=== PATIENT | female | born 1940 | race Hispanic/Latino ===

== ENCOUNTER 2017-09-18 19:22 | Emergency (ER) | payer OTHER ==
[~2017-09-18 19:22] MED LIST: HYDR-2132 PO; LOSA50TA37 PO
== END 2017-09-18 20:26 | disposition home or self-care (01) ==
LOC: EDH 19:22
DX: R09.89 Other specified symptoms and signs involving the circulatory and respiratory systems (principal); F41.9 Anxiety disorder, unspecified; I10 Essential (primary) hypertension
CPT/HCPCS: 70360; 71046; 74018

== ENCOUNTER 2018-10-27 09:31 | Inpatient (IN) | payer OTHER | END 2018-10-31 17:30 | disposition home or self-care (01) | LOC: EDH 09:31 → EDHIP 10:01 → 4BH 11:05 | DX: M33.20 Polymyositis, organ involvement unspecified (principal); I10 Essential (primary) hypertension; E78.5 Hyperlipidemia, unspecified; Z83.3 Family history of diabetes mellitus ==

== ENCOUNTER 2018-12-02 17:06 | Inpatient (IN) | payer OTHER | END 2018-12-06 19:45 | disposition short-term general hospital (02) | LOC: EDH 17:06 → 3DH 12-03 01:11 → EDHIP 17:07 | DX: M33.20 Polymyositis, organ involvement unspecified (principal); K56.7 Ileus, unspecified; G72.49 Other inflammatory and immune myopathies, not elsewhere classified; K57.90 Diverticulosis of intestine, part unspecified, without perforation or abscess without bleeding; M62.81 Muscle weakness (generalized); K59.00 Constipation, unspecified; D64.9 Anemia, unspecified; M60.9 Myositis, unspecified; K27.9 Peptic ulcer, site unspecified, unspecified as acute or chronic, without hemorrhage or perforation ==

== ENCOUNTER 2024-07-08 03:19 | Observation (INO) | payer OTHER ==
[~2024-07-08] VITALS: Ht 149.9 cm; Wt 54.5 kg
[~2024-07-08 03:19] MED LIST changes: +CHOL500050 PO; -HYDR-2132 PO; +HYDR-4457 PO; -LOSA50TA37 PO; +LOSA50TA64 PO; +PRED20TA3 PO
--- NOTE | 2024-07-08 03:34 | ERN ---
ED Note History of Present Illness Stated Complaint: C/O LOWER BACK PAIN Chief Complaint: Back Pain-No Injury Time Seen by MD: 03:25 Dictation: This is an 84-year-old female who came into the ER with a new onset severe right flank pain for the past 2 days. She denied any diarrhea constipation she also denied any hematuria dysuria. She stated that the pain was so intense on the right side in the flank area that she could not sleep all night and hence she came in for evaluation Temperature 98.4 pulse 63 respirations 20 blood pressure 198 over 91 pulse oximetry 99% on room air Chronic medical problems include hypertension hypercholesterolemia. 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 Patient was on prednisone for many months and eventually developed perforated colon and underwent a resection of colon in [place]. Her diagnosis was refuted and she was thought to not have polymyositis and she was eventually taken off the steroids. Allergies: Coded Allergies: No Known Drug Allergies (Verified Allergy, Unknown, 07/17/16) Home Meds Reported Medications Losartan Potassium (Losartan Potassium) 50 Mg Tablet, 50 MG PO DAILY, TAB 10/27/18 Discontinued Reported Medications Prednisone (Prednisone) 20 Mg Tablet, 20 MG PO TID, TAB 12/03/18 Hydrocodone/Acetaminophen ([place] 5-325 Tablet) 1 Each Tablet, 1 EACH PO Q6HPRN PRN for PAIN LEVEL 1 TO 5, TAB 10/27/18 Cholecalciferol (Vitamin D3) (Vitamin D) 50,000 Unit Capsule, 24775 UNIT PO 2xweek, CAP 10/27/18 Past Medical History Past Medical History: High Cholesterol, Hypertension Surgical History: Other Surgical History Other: HX OF COLON RESECTION Family History: Negative Social History: Negative History: Not Applicable RN Note Reviewed/Agreed w/PFSH: Yes Review of System Dictation Constitutional: Negative for fever,chills, and weight loss Eyes: Negative for injury, pain,redness, and discharge ENT: Negative for injury,pain or swelling Cardiovascular: Negative for chest pain, palpitations, and edema Respiratory: Negative for shortness of breath, cough, and wheezing, Abdomen/GI: Negative for abdominal pain, nausea, vomiting, diarrhea, and constipation Back: Negative for injury and pain : Negative for injury, bleeding and discharge right flank pain MS/Extremity: Negative for injury and deformity Skin: Negative for rash, and discoloration Neuro: Negative for headache, weakness, numbness, tingling, and seizure Psych: Negative for suicide ideation, homicidal ideation, and hallucinations Initial Vital Sign VS Vital Signs Date Time Temp Pulse Resp B/P (MAP) Pulse Ox O2 Delivery O2 Flow Rate FiO2 07/08/24 03:20 98.4 63 20 198/91 97 Room Air 07/08/24 03:36 0 21 Physical Exam Dictation General: awake, alert, NAD Head/Face: Normocephalic, atraumatic Eyes: PERRL, EOMI, vision at baseline ENT: oral cavity clear, TMs clear, no signs of infection Neck: Trachea midline, supple, no nuchal rigidity Cardiovascular: RRR, normal S1/S2, No MRGs, no JVD Respiratory: CTAB, no respiratory distress, No rales or wheezes Abdomen: Soft, non-tender, non-distended, normal bowel sounds, no guarding or rebound. Right flank tenderness Skin: Warm, dry, normal turgor, no rash MS/Extremity: Pulses equal, no cyanosis, neurovascular intact, FROM Neuro: COAx4, GCS 15, strength 5/5, CN 2-12 intact, normal cerebellar exam, normal gait, Psych: Normal behavior, mood, and affect normal Extremities-trace edema without any palpable cords, Homans sign is negative Results (Laboratory/Radiology) Laboratory/Radiology Laboratory Tests Test 07/08/24 03:48 07/08/24 04:20 07/08/24 12:23 07/08/24 17:35 White Blood Count 3.4 K/uL (4.8-10.8) L Red Blood Count 4.45 MIL/uL (4.00-5.50) Hemoglobin 13.3 g/dL (12.0-16.0) Hematocrit 40.2 % (36-48) Mean Corpuscular Volume 90.3 fL (79-99) Mean Corpuscular Hemoglobin 29.9 pg (27.0-33.0) Mean Corpuscular Hemoglobin Concent 33.1 g/dL (32.0-36.0) Red Cell Distribution Width 12.6 % (11.0-15.5) Platelet Count 204 K/uL (130-400) Mean Platelet Volume 9.6 fL (7.5-10.5) Immature Granulocyte % (Auto) 0.3 % (0-1) Neutrophils (%) (Auto) 56.0 % (40.0-77.0) Lymphocytes (%) (Auto) 25.8 % (21.0-51.0) Monocytes (%) (Auto) 15.5 % (3.0-13.0) H Eosinophils (%) (Auto) 1.5 % (0.0-8.0) Basophils (%) (Auto) 0.9 % (0.0-5.0) Neutrophils # (Auto) 1.9 K/uL (1.8-7.7) Lymphocytes # (Auto) 0.9 K/uL (1.0-4.8) L Monocytes # (Auto) 0.5 K/uL (0.1-1.0) Eosinophils # (Auto) 0.05 K/uL (0.00-0.70) Basophils # (Auto) 0.03 K/uL (0.00-0.20) Absolute Immature Granulocyte (auto 0.01 K/uL (0-1) Nucleated Red Blood Cells 0.0 % (0.0-0.19) White Cell Morphology Comment CONSISTENT W/DIFF Sodium Level 140 mmol/L (136-145) Potassium Level 3.9 mmol/L (3.5-5.1) Chloride Level 103 mmol/L (101-111) Carbon Dioxide Level 27 mmol/L (21-32) Blood Urea Nitrogen 22 mg/dL (7-18) H Creatinine 0.9 mg/dL (0.5-1.0) Glomerular Filtration Rate Calc 64 mL/min (>90) Random Glucose 142 mg/dL (70-105) H Total Calcium 9.8 mg/dL (8.5-10.1) Total Bilirubin 0.3 mg/dL (0.2-1.0) Direct Bilirubin 0.1 mg/dL (0.0-0.3) Aspartate Amino Transf (AST/SGOT) 33 U/L (10-37) Alanine Aminotransferase (ALT/SGPT) 38 U/L (12-78) Alkaline Phosphatase 76 U/L (50-136) Total Creatine Kinase 78 U/L (21-232) # Total Protein 7.2 g/dL (6.0-8.3) Albumin 3.8 g/dL (3.5-5.0) Lipase 47 U/L (16-77) Urine Color COLORLESS (YELLOW) Urine Appearance CLEAR (CLEAR) Urine pH 5.5 (5.0-8.0) Urine Specific [place] 1.005 (1.001-1.031) Urine Protein NEGATIVE mg/dL (NEGATIVE) Urine Glucose (UA) NEGATIVE mg/dL (NEGATIVE) Urine Ketones NEGATIVE mg/dL (NEGATIVE) Urine Occult Blood NEGATIVE (NEGATIVE) Urine Nitrate NEGATIVE (NEGATIVE) Urine Bilirubin NEGATIVE mg/dL (NEGATIVE) Urine Urobilinogen 0.2 mg/dL (0.2-1.0) Urine Leukocyte Esterase NEGATIVE Karen/uL D-Dimer Quantitative (PE/DVT) 838 ng/mL (0-500) *H Whole Blood Glucose 118 MG/DL (70-110) H Labs Reviewed?: Yes ED Course ED Course Orders Procedure Category Date Status Time Cbc With Differential LAB 07/08/24 Complete 03:30 Basic Metabolic Panel LAB 07/08/24 Complete 03:30 Urinalysis Profile LAB 07/08/24 Complete 03:30 Creatine Kinase, Total LAB 07/08/24 Complete 03:30 Morphine 2mg Syg PHA 07/08/24 Complete (Morphine 2mg Syg) 03:30 12 Lead Ekg Tracing- EKG 07/08/24 Complete Technical 04:57 Morphine 2mg Syg PHA 07/08/24 Complete (Morphine 2mg Syg) 05:30 Ct Abdomen/Pelvis W/O CT 07/08/24 Resulted Contrast 05:34 Hepatic Function Panel LAB 07/08/24 Complete 06:51 Lipase LAB 07/08/24 Complete 06:51 Ketorolac PHA 07/08/24 Complete Tromethamine 15mg/Ml 08:30 Morphine 2mg Syg PHA 07/08/24 Complete (Morphine 2mg Syg) 08:30 Vital Signs(Adult CPOE 07/08/24 Transmitted Hospitalist) 09:21 Nurse To Enter Home CPOE 07/08/24 Transmitted Medication 09:21 Admit Orders ADM 07/08/24 Transmitted 10:02 Initiate SUSAN 07/08/24 In Process Hyperglycemia Protoco 12:04 Insulin Regular, PHA 07/08/24 In Process Human 3ml (Humulin R 16:30 Initiate Hypoglycemia SUSAN 07/08/24 In Process Protocol 12:04 Dextrose 50%-Water PHA 07/08/24 In Process (D50w) 12:30 Glucagon 1mg Kit PHA 07/08/24 In Process (Glucagon 1mg Kit) 12:30 Initiate Hypokalemia CPOE 07/08/24 Transmitted Po Half 12:04 Potassium Chloride PHA 07/08/24 In Process 10meq/100ml ([place] 12:30 Potassium Chl 10% PHA 07/08/24 In Process Elixir 20meq (Kcl 10% 12:30 Potassium Chloride PHA 07/08/24 In Process 20meq Er (K-Dur/Klor- 12:30 Notify Physician If CPOE 07/08/24 Transmitted There Is 12:04 Notify Md On The Next CPOE 07/08/24 Transmitted 12:04 Notify Md On The CPOE 07/08/24 Transmitted Next(Cont.) 12:04 Magnesium 2gm Premix PHA 07/08/24 In Process 50ml (Magnesium 2gm 12:30 B-Type Natriuretic LAB 07/09/24 Verified Peptide 04:00 Ammonia LAB 07/09/24 Verified 04:00 Cbc With Differential LAB 07/09/24 Verified 04:00 Comprehensive LAB 07/09/24 Verified Metabolic Panel 04:00 Creatine Kinase, Total LAB 07/09/24 Verified 04:00 D-Dimer LAB 07/08/24 Complete 12:04 Hemoglobin A1c LAB 07/09/24 Verified 04:00 Hepatic Function Panel LAB 07/09/24 Verified 04:00 Lactic Acid LAB 07/09/24 Verified 04:00 Magnesium LAB 07/09/24 Verified 02:00 Procalcitonin LAB 07/09/24 Verified 04:00 Vital Signs(Adult CPOE 07/08/24 Transmitted Hospitalist) 12:05 Daily Weights CPOE 07/08/24 Transmitted 12:05 I&O Q Shift CPOE 07/08/24 Transmitted 12:05 Diphenhydramine Hcl PHA 07/08/24 In Process (Benadryl Inj) 12:30 Acetaminophen 325 Tab PHA 07/08/24 In Process (Tylenol 325mg Tab 12:30 Acetaminophen 325 Tab PHA 07/08/24 Complete (Tylenol 325mg Tab 12:30 Ondansetron 4mg Inj PHA 07/08/24 In Process (Zofran 4mg Inj) 12:30 Zolpidem Tartrate 5 PHA 07/08/24 In Process Mg Tab (Ambien) 12:30 Mag/Alum/Simeth 30ml PHA 07/08/24 In Process (Maalox Plus 30ml) 12:30 Lactulose 20 Gm/30 Ml PHA 07/08/24 In Process Udcup (Constulose 12:30 Nitroglycerin 0.4mg PHA 07/08/24 In Process Sl Tab (Nitrostat) 12:30 Guaifenesin-Dm PHA 07/08/24 In Process 200/20mg 10ml 12:30 Famotidine 20mg Vial PHA 07/08/24 Complete (Pepcid 20mg Vial) 12:30 Nurse To Enter Home CPOE 07/08/24 Transmitted Medication 12:05 Admit Orders ADM 07/08/24 Transmitted 12:05 Activity: Ad Ruma CPOE 07/08/24 Transmitted 12:05 Heparin 5,000 Unit PHA 07/08/24 In Process Vial (Heparin 5,000 U 21:00 Apply Scds CPOE 07/08/24 Transmitted 12:05 Acetaminophen 325 Tab PHA 07/08/24 In Process (Tylenol 325mg Tab 12:30 Ketorolac PHA 07/08/24 In Process Tromethamine 15mg/Ml 12:30 *Nursing CPOE 07/08/24 Transmitted Communication: 12:05 0.9%Nacl 1000ml (Ns PHA 07/08/24 In Process 1000ml) 12:30 Hydralazine 20mg Inj PHA 07/08/24 In Process (Apresoline 20mg In 12:30 Famotidine 20mg Vial PHA 07/08/24 In Process (Pepcid 20mg Vial) 21:00 Ct Thoracic Spine W/O CT 07/08/24 Resulted Contrast 12:13 Ct Lumbar Spine W/O CT 07/08/24 Resulted Contrast 12:13 Nm Pulmonary/Lung Vq NM 07/08/24 Logged Scan 13:32 Chest 1vw RAD 07/08/24 Resulted 14:29 Heart Healthy Diet DIET 07/09/24 Transmitted Breakfast Current Medications Medications (Trade) Dose Ordered Sig/[place] Route PRN Reason Start Time Stop Time Status Last Admin Dose Admin Ketorolac Tromethamine (toRADol) 10 mg ONCE ONCE IV 07/08/24 08:30 07/08/24 08:31 DC 07/08/24 08:26 Morphine Sulfate (morPHINE 2MG SYG) 2 mg ONCE ONCE IVP 07/08/24 03:30 07/08/24 03:34 DC 07/08/24 03:54 Morphine Sulfate (morPHINE 2MG SYG) 2 mg ONCE ONCE IVP 07/08/24 05:30 07/08/24 05:31 DC 07/08/24 05:17 Morphine Sulfate (morPHINE 2MG SYG) 2 mg ONCE ONCE IVP 07/08/24 08:30 07/08/24 08:31 DC 07/08/24 08:25 Vital Signs Date Time Temp Pulse Resp B/P (MAP) Pulse Ox O2 Delivery O2 Flow Rate FiO2 07/08/24 19:16 97.9 55 15 120/46 96 Room Air* 0 07/08/24 17:55 98.4 60 18 134/58 97 Room Air* 0 07/08/24 16:03 98.4 55 18 128/56 97 Room Air* 0 07/08/24 14:39 98.4 66 18 127/49 96 Room Air* 0 07/08/24 13:19 98.4 61 18 117/60 96 Room Air* 0 07/08/24 12:15 98.4 55 18 128/67 96 Room Air* 0 07/08/24 11:05 98.4 54 18 140/65 96 Room Air* 0 07/08/24 08:57 98.8 64 18 119/54 96 Room Air* 0 07/08/24 07:38 98.8 54 18 147/66 96 Room Air* 0 07/08/24 05:05 98.8 72 18 147/67 99 Room Air* 0 07/08/24 03:36 98.6 62 18 170/73 99 Room Air* 0 07/08/24 03:20 98.4 63 20 198/91 97 Room Air We will perform diagnostic labs, advanced imaging and administer medications according to the patient's complaint. Once the results are available, will review and personally interpreted the labs to rule out any acute life-th reatening emergency the trach require immediate intervention and treatment. I will then re-evaluate the patient after treatment and diagnostic exams have return to determine whether the patient requires any further testing, can safely be discharged home or need further admission to hospital for additional treatment and evaluation. Labs reviewed 4:46 a.m.-CBC showed a white count of 3.4 BNP 7 is normal urinalysis is negative. Patient complains of persistent pain CT scan of the abdomen and pelvis without contrast was requested to evaluate for any renal stone colonic pathology or perhaps musculoskeletal. We will admit her for pain management and to follow up on the CT abdomen results and she is agreeable Medical Decision Making MDM MDM: Differential diagnosis: Pyelonephritis, musculoskeletal pain, colonic pathology, nephrolithiasis, lumbar radiculopathy Rationale: Tests considered and ordered secondary to shared decision making include: labs, ECG and radiology Previous outside records reviewed: Old ER visits. Risk of complication and/or morbidity or mortality of patient management: None Medications-Per medication reconciliation Need for hospitalization: Patient does meet criteria for hospitalization. Need for emergency major/minor surgery: No There are no social concerns with this patient. Prescription drug management Prescriptions will include symptomatic care Patient's prior external medical records from other ER visits were reviewed by me as indicated. Prior testing and results from previous visits were reviewed. Prior tests were taken into account with medical decision making and resource utilization, independent historian/historians were used to obtain complete medical history. I independently interpreted the test that were performed, results were reviewed by me and considered findings on radiology if ordered. Medical management and examination interpretation discussions were had by me with other qualified healthcare professionals as indicated for the patient's care. DR PAEZ I took over care at [address] read and admission. On re-evaluation of the patient, she still complains of moderate pain to the R flank/lower back. Given IV morphine & toradol. CT prelim read shows no acute causes of the pain. 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 Small cortical calcification to R kidney. Consultation: hospitalist for admission. Patient updated. She reports that she's still in pain and prefers admission. Problem List Problem List: (1) Right flank pain (2) Hypercholesterolemia (3) History of colon resection (4) Hypertensive urgency DX & DISP Disposition: Inpatient Decision to Admit Time: 05:45 Departure Impression: Primary Impression: Hypertensive urgency Additional Impressions: Right flank pain, Hypercholesterolemia, History of colon resection Condition: Stable Additional Instructions: Patient was informed of all the diagnostic labs and procedures conducted in the emergency room today and demonstrated understanding of the results. I personally reviewed and interpreted all the diagnostic exams performed in the ER today. The patient will be admitted to the hospital for further treatment and evaluation. Disposition-admit to facility Condition-stable/guarded Course-uncertain at this time Pain status-decreased Assessment-exam unchanged Admission Certification- I certify that the patients status is appropriate and is based on my best clinical judgment and the patient's condition as documented in the medical records Referrals: ASHLEY ROBERTSON MD (PCP) CAROL ANN SANCHEZ MD Jul 08, 2024 03:34 ALPHONSO PAEZ DO Jul 08, 2024 09:06
[2024-07-08] MEDS: morPHINE 2 MG SYG IVP ONE ×3 (03:54→08:25)
[2024-07-08 03:57] LABS: BASOPHILS # (AUTO) 0.03 K/uL (0.00-0.20); BASOPHILS % (AUTO) 0.9 % (0.0-5.0); EOSINOPHILS # (AUTO) 0.05 K/uL (0.00-0.70); EOSINOPHILS % (AUTO) 1.5 % (0.0-8.0); HEMATOCRIT 40.2 % (36-48); IMMATURE GRANULOCYTE ABSOLUTE 0.01 K/uL (0-1); LYMPHOCYTES # (AUTO) 0.9 K/uL (1.0-4.8); LYMPHOCYTES % (AUTO) 25.8 % (21.0-51.0); MEAN CORPUSCULAR HEMOGLOBIN 29.9 pg (27.0-33.0); MEAN CORPUSCULAR HGB CONC 33.1 g/dL (32.0-36.0); MEAN CORPUSCULAR VOLUME 90.3 fL (79-99); MONOCYTES # (AUTO) 0.5 K/uL (0.1-1.0); MONOCYTES % (AUTO) 15.5 % (3.0-13.0); NEUTROPHILS # (AUTO) 1.9 K/uL (1.8-7.7); PLATELET COUNT (AUTO) 204 K/uL (130-400); RED BLOOD CELL COUNT(AUTO) 4.45 MIL/uL (4.00-5.50); RED CELL DISTRIBUTION WIDTH 12.6 % (11.0-15.5); WHITE BLOOD COUNT (AUTO) 3.4 K/uL (4.8-10.8)
[2024-07-08 04:05] LABS: CREATININE 0.9 mg/dL (0.5-1.0); POTASSIUM 3.9 mmol/L (3.5-5.1)
[2024-07-08 04:29] LABS: ADD UA MICROSCOPIC NO; APPEARANCE,URINE CLEAR (CLEAR); BILIRUBIN,URINE NEGATIVE (NEGATIVE); COLOR,URINE COLORLESS (YELLOW); GLUCOSE, URINE (UA) NEGATIVE (NEGATIVE); KETONES,URINE NEGATIVE (NEGATIVE); LEUKOCYTE ESTERASE ,URINE NEGATIVE Leu/uL (NEGATIVE); NITRATE,URINE NEGATIVE (NEGATIVE); OCCULT BLOOD,URINE NEGATIVE (NEGATIVE); PH,URINE 5.5 (5.0-8.0); PROTEIN,URINE NEGATIVE (NEGATIVE); UROBILINOGEN,URINE 0.2 mg/dL (0.2-1.0)
[2024-07-08 04:45] LABS: WBC MORPHOLOGY CONSISTENT W/DIFF
--- NOTE | 2024-07-08 06:28 | EKG ---
[facility] Test Date: 2024-07-08 Test Time: 04:59:40 Pat Name: JORDAN CASILLAS Department: ED Room: 302 Gender: F Welcome Hostess: [id number] : [id number] Requested By: CAROL ANN SANCHEZ Order Number: [id number] Reading MD: Andreas Joshi Measurements Intervals [place] Rate: 63 P: 0 [place]: 211 QRS: 55 QRSD: 90 T: 25 QT: 417 QTc: 426 Interpretive Statements Sinus rhythm Low voltage, precordial leads No previous ECG available for comparison Electronically Signed On 07-09-2024 19:30:13 [employer] by Andreas Joshi Please click the below link to view image of tracing.
[2024-07-08 08:10] LABS: ALBUMIN 3.8 g/dL (3.5-5.0); BILIRUBIN,DIRECT 0.1 mg/dL (0.0-0.3); BILIRUBIN,TOTAL 0.3 mg/dL (0.2-1.0); TOTAL PROTEIN, SERUM 7.2 g/dL (6.0-8.3)
[2024-07-08] MEDS: ketOROlac 15MG/ML VIAL (15MG/ML) IV ONE (08:26)
--- NOTE | 2024-07-08 08:58 | HMCIMG ---
CT ABDOMEN/PELVIS W/O CONTRAST REASON: LEFT FLANK PAIN COMPARISON: None. FINDINGS: Lung bases are clear. There is a 3 cm low-attenuation lesion posterior segment right lobe of liver, this has typical findings of hemangioma on the previous postcontrast exam 12/03/2018 there are no other focal liver lesions.. There is a small cortical calcification right kidney consistent with dystrophic calcification, there is no evidence of mass, stone or hydronephrosis.. Spleen and pancreas appear unremarkable. There has been a previous cholecystectomy. Bowel loops appear unremarkable. This includes normal appearance of the appendix There is no evidence of free fluid or intraperitoneal air. There are no focal fluid collections. Aorta and retroperitoneum appear normal as do pelvic soft tissue structures. The anterior abdominal wall is intact. Osseous structures appear unremarkable. IMPRESSION: 1. No acute finding in the abdomen or pelvis. CT was performed with one or more following dose reduction techniques: automated exposure control, adjustment of the mA and kv according to patient's size, or use of a iterative reconstruction technique.
--- NOTE | 2024-07-08 10:53 | NUR ---
MEDICATIONS HAVE BEEN RECONCILED
[2024-07-08] MEDS: 0.9%NACL 1000ML 1,000 ML IV SCH (12:28)
[2024-07-08] MEDS ORDERED: PoTASSium chloRIDE 10MEQ/100ML 100 ML IV PRN (12:30)
[2024-07-08] MEDS ORDERED: DiphenhydrAMINE HCL 50 MG/ML VIAL IV PRN (12:30)
[2024-07-08] MEDS ORDERED: ZOLPidem TARTrate 5 MG TAB PO PRN (12:30)
[2024-07-08] MEDS ORDERED: ondanSETRON 4MG INJ IV PRN (12:30)
[2024-07-08] MEDS ORDERED: hydrALAZine 20MG/ML VIAL IV PRN (12:30)
[2024-07-08] MEDS ORDERED: GLUCAGON 1MG KIT 1 MG ML IM PRN (12:30)
[2024-07-08] MEDS ORDERED: DEXTROSE 50%-WATER 50 ML DISP.SYRIN IV PRN (12:30)
[2024-07-08] MEDS ORDERED: PoTASSium chl 10% ELIXIR 20MEQ 20 MEQ/15 ML UDCUP PO PRN (12:30)
[2024-07-08] MEDS ORDERED: MAGNESIUM 2GM PREMIX 50ML 50 ML IV PRN (12:30)
[2024-07-08] MEDS ORDERED: guaiFENesin-DM 200/20MG 10ML PO PRN (12:30)
[2024-07-08] MEDS ORDERED: FAMOTIDINE 20MG VIAL IV PRN (12:30)
[2024-07-08] MEDS ORDERED: MAG/ALUM/SIMETH 30 ML UDCUP PO PRN (12:30)
[2024-07-08] MEDS ORDERED: LACTULOSE 20 GM/30 ML UDCUP PO PRN (12:30)
[2024-07-08] MEDS ORDERED: acetaMINOPHEN 325 MG TAB PO PRN ×3 (12:30)
[2024-07-08] MEDS ORDERED: PoTASSium chloRIDE 20MEQ ER 20 MEQ ERTAB PO PRN (12:30)
[2024-07-08] MEDS ORDERED: NITROGLYCERIN 0.4 MG SL TAB SL PRN (12:30)
--- NOTE | 2024-07-08 12:46 | HP ---
[facility] PHYS[facility] Date of Service: Jul 08, 2024 Time of Service: 12:37 PCP:Jacqui Kelly Admitting: Dr Ramsey, Allergies: No Allergy Information Available, No Known Drug Allergies HISTORY OF PRESENT ILLNESS: [ Patient is 84 old female, with a past medical history of colon resection, meniscus, back surgery x2, hypertension, hyperlipidemia, who came to emergency department onset of severe left flank pain radiating to the back past. Patient stated that since last night she developed very excruciate pain that made her cry and. About three it was so unbearable she decided to come to emergency. Pain was for about hour and a half and fell as stabbing pain per left side. 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 Patient was on prednisone for many months and eventually developed perforated colon and underwent a resection of colon in [place]. Her diagnosis was refuted and she was thought to not have polymyositis and she was eventually taken off the steroids. Most recent vital signs temperature 98.4 pulse 55 respiration 18 blood pressure 128/67 patient is on room air satting 96%. WBC 3.4 hemoglobin 13.3 hematocrit platelets 204. UA negative for leukocytosis or nitrates. Sodium 140 potassium 3.9 CO2 27 BUN 22 creatinine 0.9 GFR 64 bilirubin 0.1 AST 3 3 ALT 38 CK [address] abdomen/pelvis negative. Patient will be admitted under hospitalist care for further evaluation and treatment. Patient agrees with the further recommendations. ] REVIEW OF SYSTEMS CONSTITUTIONAL: Denies fevers, chills, or night sweats. No unintentional weight loss reported. NEUROLOGICAL: Denies headache, amaurosis fugax, motor weakness, sensory deficit, vertigo/spinning sensation, gait abnormalities, or tremors. ENT: No hearing loss, otalgia, otorrhea, rhinitis, rhinorrhea, hoarseness, or sore throat. CARDIOVASCULAR: Denies any exertional angina, dyspnea on exertion, orthopnea, paroxysmal nocturnal dyspnea, palpitations, life-threatening arrhythmias, claudication. PULMONARY: Denies any shortness of breath, cough, phlegm/sputum, hemoptysis, pleuritic chest pain. SLEEP: Denies morning headaches, daytime somnolence or napping. Denies difficulty falling asleep, staying asleep, waking from sleep. Denies knowledge of snoring. GASTROINTESTINAL: Denies any type of dysphagia to either liquids or solids. Denies nausea, vomiting, pyrosis, early satiety, diarrhea, constipation, or changes in stool consistency or caliber. Denies coffee-ground emesis, hematemesis, hematochezia, or melanotic stools. Complains of abdominal pain on the left side GENITOURINARY: Denies frequency, urgency, nocturia, hematuria or incontinence (Storage/Irritative symptoms.) Low urinary stream, straining to void, urinary intermittency or hesitancy, splitting of the voiding stream, terminal dribbling. ENDOCRINOLOGIC: Denies polyuria, polydipsia, polyphagia or heat/cold intolerances. HEMATOLOGIC: Denies thrombophilia/previous clots, or coagulopathy/bleeding disorders. ONCOLOGIC: Denies personal history of malignancy. DERMATOLOGIC: Denies rashes or pruritus. PSYCHIATRIC: Denies any suicidal or homicidal ideation. Denies hallucinations. PAST MEDICAL HISTORY: [Hypertension, hyperlipidemia, polymyositis , perforated colon ] PAST SURGICAL HISTORY: [ Muscle biopsy October 15, 2018, colon resection, right knee meniscus surgery, back surgery about 20 years ago x2] PAST SOCIAL HISTORY: [ Denies smoking, denies alcohol, denies drug illicit ] Coded Allergies: No Known Drug Allergies (Verified Allergy, Unknown, 07/17/16) PHYSICAL EXAM GENERAL APPEARANCE: The patient is awake, alert, and oriented, in no acute cardiopulmonary distress. NEUROLOGICAL: Cranial nerves II-XII grossly intact. Motor is 5/5 in bilateral upper and lower extremities proximal to distal. No sensory deficits. HEENT: Face is symmetric. Pupils are equal and reactive. Extraocular movements are intact. NECK: Supple. No JVD. No thyromegaly. No submental, submandibular, pre- /postauricular, occipital or supraclavicular lymphadenopathy. CHEST: Normal chest expansion. No Telemetry. LUNGS: Absence of any rales, rhonchi or any wheezing. CARDIOVASCULAR: Regular. S1 and S2 normal. No appreciable rubs, murmurs or gallops. ABDOMEN: Soft, nontender, and nondistended. There is no rebound, voluntary guarding, or rigidity. : Deferred. No Kirby. EXTREMITIES: Non-edematous and not cyanotic. No clubbing. Good capillary refill. SKIN: No skin breakdown. Vital Sign (Last 24 Hours) 07/08/24 12:15 Temp 98.4 Pulse 55 Resp 18 B/P (MAP) 128/67 Pulse Ox 96 O2 Delivery Room Air* O2 Flow Rate 0 FiO2 21 LABS: Laboratory: Test 07/08/24 04:20 07/08/24 03:48 Range/Units Urine Color COLORLESS YELLOW Urine Appearance CLEAR CLEAR Urine pH 5.5 5.0-8.0 Urine Specific [place] 1.005 1.001-1.031 Urine Protein NEGATIVE NEGATIVE mg/dL Urine Glucose (UA) NEGATIVE NEGATIVE mg/dL Urine Ketones NEGATIVE NEGATIVE mg/dL Urine Occult Blood NEGATIVE NEGATIVE Urine Nitrate NEGATIVE NEGATIVE Urine Bilirubin NEGATIVE NEGATIVE mg/dL Urine Urobilinogen 0.2 0.2-1.0 mg/dL Urine Leukocyte Esterase NEGATIVE NEGATIVE Karen/uL White Blood Count 3.4 L 4.8-10.8 K/uL Red Blood Count 4.45 4.00-5.50 MIL/uL Hemoglobin 13.3 12.0-16.0 g/dL Hematocrit 40.2 36-48 % Mean Corpuscular Volume 90.3 79-99 fL Mean Corpuscular Hemoglobin 29.9 27.0-33.0 pg Mean Corpuscular Hemoglobin Concent 33.1 32.0-36.0 g/dL Red Cell Distribution Width 12.6 11.0-15.5 % Platelet Count 204 130-400 K/uL Mean Platelet Volume 9.6 7.5-10.5 fL Immature Granulocyte % (Auto) 0.3 0-1 % Neutrophils (%) (Auto) 56.0 40.0-77.0 % Lymphocytes (%) (Auto) 25.8 21.0-51.0 % Monocytes (%) (Auto) 15.5 H 3.0-13.0 % Eosinophils (%) (Auto) 1.5 0.0-8.0 % Basophils (%) (Auto) 0.9 0.0-5.0 % Neutrophils # (Auto) 1.9 1.8-7.7 K/uL Lymphocytes # (Auto) 0.9 L 1.0-4.8 K/uL Monocytes # (Auto) 0.5 0.1-1.0 K/uL Eosinophils # (Auto) 0.05 0.00-0.70 K/uL Basophils # (Auto) 0.03 0.00-0.20 K/uL Absolute Immature Granulocyte (auto 0.01 0-1 K/uL Nucleated Red Blood Cells 0.0 0.0-0.19 % White Cell Morphology Comment CONSISTENT W/DIFF Sodium Level 140 136-145 mmol/L Potassium Level 3.9 3.5-5.1 mmol/L Chloride Level 103 101-111 mmol/L Carbon Dioxide Level 27 21-32 mmol/L Blood Urea Nitrogen 22 H 7-18 mg/dL Creatinine 0.9 0.5-1.0 mg/dL Glomerular Filtration Rate Calc 64 >90 mL/min Random Glucose 142 H 70-105 mg/dL Total Calcium 9.8 8.5-10.1 mg/dL Total Bilirubin 0.3 0.2-1.0 mg/dL Direct Bilirubin 0.1 0.0-0.3 mg/dL Aspartate Amino Transf (AST/SGOT) 33 10-37 U/L Alanine Aminotransferase (ALT/SGPT) 38 12-78 U/L Alkaline Phosphatase 76 50-136 U/L Total Creatine Kinase 78 # 21-232 U/L Total Protein 7.2 6.0-8.3 g/dL Albumin 3.8 3.5-5.0 g/dL Lipase 47 16-77 U/L Current Medications Medications (Trade) Dose Ordered Sig/[place] Route PRN Reason Start Time Stop Time Status Last Admin Dose Admin Acetaminophen (TYLenol 325MG TAB) 650 mg Q4H PRN PO MILD PAIN (1-3) 07/08/24 12:30 07/08/24 12:22 DC Acetaminophen (TYLenol 325MG TAB) 650 mg Q6H PRN PO MILD PAIN (1-3) 07/08/24 12:30 08/07/24 12:29 Acetaminophen (TYLenol 325MG TAB) 650 mg Q6H PRN PO TEMPERATURE GREATER THAN 101.5 07/08/24 12:30 08/07/24 12:29 Al Hydroxide/Mg Hydroxide (MAALox PLUS 30ML) 30 ml Q6H PRN PO INDIGESTION 07/08/24 12:30 08/07/24 12:29 Dextrose (D50w) 50 ml AD PRN IV HYPOGLYCEMIA PROTOCOL 07/08/24 12:30 08/07/24 12:29 Diphenhydramine HCl (BENAdryl INJ) 25 mg Q6H PRN IV SEVERE ITCHING/RASH 07/08/24 12:30 08/07/24 12:29 Famotidine (Pepcid 20mg Vial) 20 mg BID PRN IV NAUSEA/VOMITING 07/08/24 12:30 07/08/24 12:25 DC Famotidine (Pepcid 20mg Vial) 20 mg Q24H IV 07/08/24 21:00 08/07/24 20:59 Glucagon (Glucagon 1mg Kit) 1 mg AD PRN IM HYPOGLYCEMIA PROTOCOL 07/08/24 12:30 08/07/24 12:29 Guaifenesin/ Dextromethorphan (RobiTUSSin DM 200/20MG 10ML) 10 ml Q4H PRN PO COUGH 07/08/24 12:30 08/07/24 12:29 Heparin Sodium (Porcine) (HEParin 5,000 UNIT VIAL) 5,000 unit BID SQ 07/08/24 21:00 08/07/24 20:59 Hydralazine HCl (APRESOLine 20MG INJ) 10 mg Q6H PRN IV For:SBP above 160;DBP above 90 07/08/24 12:30 08/07/24 12:29 Insulin Human Regular (humuLIN R 100 UNIT/ML 3ML) INSULIN SLIDING SCAL... ACHS SQ 07/08/24 16:30 08/07/24 16:29 Ketorolac Tromethamine (toRADol) 15 mg Q8H PRN IV MODERATE PAIN (4-6) 07/08/24 12:30 07/13/24 12:29 Lactulose (Constulose 20gm/ 30ml Udcup) 20 gm BID PRN PO CONSTIPATION 07/08/24 12:30 08/07/24 12:29 Magnesium Sulfate 50 ml @ 0 mls/hr PROTOCOL PRN IV other 07/08/24 12:30 08/07/24 12:29 Nitroglycerin (Nitrostat) 0.4 mg PROTOCOL PRN SL CHEST PAIN 07/08/24 12:30 08/07/24 12:29 Ondansetron HCl (zoFRAN 4MG INJ) 4 mg Q6H PRN IV NAUSEA/VOMITING 07/08/24 12:30 08/07/24 12:29 Potassium Chloride 100 ml @ 100 mls/hr AD PRN IV POTASSIUM PROTOCOL 07/08/24 12:30 08/07/24 12:29 Potassium Chloride (K-Dur/Klor-Con 20meq) 10 meq AD PRN PO POTASSIUM PROTOCOL 07/08/24 12:30 08/07/24 12:29 Potassium Chloride (KCl 10% Elixir 20meq/15ml) 10 meq AD PRN PO POTASSIUM PROTOCOL 07/08/24 12:30 08/07/24 12:29 Sodium Chloride 1,000 ml @ 50 mls/hr Q20H IV 07/08/24 12:30 08/07/24 12:29 07/08/24 12:28 50 MLS/HR Zolpidem Tartrate (AmbIEN) 5 mg HS PRN PO INSOMNIA 07/08/24 12:30 08/07/24 12:29 DIAGNOSTICS / RADIOLOGY: [ ] ASSESSMENT: [ Left flank pain/abdominal pain unknown source POA Uncontrolled hypertension POA Uncontrolled diabetes mellitus type 2 with hyperglycemia POA Acute Dehydration POA Hyperlipidemia POA History of colon resection ] PLAN: [ Admit to: Medical-surgical floor Consults: None Antibiotics: None Tests: CT lumbar, CT thoracic without contrast Fluids normal saline at 50 mL/hour NEURO: Minimize central acting medications as possible. Fall Precautions. Well lighted room through the day and minimize interruptions through the night to prevent acute delirium. PULMONARY: Supplemental 02 as needed BiPAP as necessary, for respiratory distress Titrate Fio2 to keep Spo2 > or = 90% DuoNebs and CPT as needed IS hourly while awake for pulmonary hygiene Out of bed to chair as tolerated VAP Bundle Maintain aspiration precautions at all times CARDIOVASCULAR: Follow hemodynamics. Vital signs per facility protocol GI & NUTRITION: Continue nutritional support Aspirations precautions Prokinetic agents and laxatives as needed KIDNEYS & ELECTROLYTES: Strict monitoring of intake and output Daily weights Avoid nephrotoxic agents Monitor electrolytes and replace as needed Goal urine output of 30mL/hr or 0.5mL/kg/hr Medications to be dosed according to renal function. Avoid contrast if possible ENDOCRINE: Maintain blood glucose between 100-180 at all times. Insulin sliding scale for blood glucose management Hypoglycemia and hyperglycemia protocol in place INFECTIOUS DISEASE: Trend temperature, WBC and procalcitonin level Follow cultures, deescalate antibiotics as soon as possible. Panculture if new onset fever HEMATOLOGY & COAGULATION: Monitor H&H. Keep Hgb > 7 Transfuse 1 unit of PRBC for Hgb < 7 Transfuse 1 pack of platelets of platelets < 20, 000 Watch for any signs and symptoms of bleeding SKIN: Pressure ulcer prevention per facility protocol Specialty mattress as needed Treatment plan discussed with patient and family at the bedside Medications to be reconciled once obtained by patient and/or family and available to be reconciled in computer p.r.n. medication for pain nausea and vomiting Questions were answered We will continue to monitor the patient closely Vice President Supply Chain for disposition Rehab: PT/OT GI: PPI DVT: SCD's Code Status: Full Resuscitation Disposition: TBD Prognosis: Guarded ] ATTESTATION BY PHYSICIAN I have seen and examined the patient. I reviewed the documentation, medical decision making, and treatment plan as noted by the mid-level provider above. I agree with the findings and plan of care. TERESE RAMSEY MD, [facility]ZYNA [facility] Jul 08, 2024 12:45
--- NOTE | 2024-07-08 13:30 | NUR ---
REPORTED D DIMER TO HOSPITALIST IN SCHOOL SUSPENSION COORDINATOR, NEW ORDER FOR A VQ SCAN
--- NOTE | 2024-07-08 15:21 | HMCIMG ---
CT LUMBAR SPINE W/O CONTRAST REASON: BACK PAIN COMPARISON: None TECHNIQUE: Routine lumbar imaging protocol was performed from T11-12 through the mid sacrum. FINDINGS: There is moderate disc interspace narrowing at L5-S1. There is is vacuum disc phenomenon at L3-4 and L4-5 although disc interspace heights are preserved. Vertebral body alignment is normal. There are no focal osseous lesions. Axial images show marked ligamentum flavum and facet hypertrophic changes. There is spinal stenosis at L4-5, AP diameter the midline between 6 and 7 mm, narrowing more pronounced in the lateral recesses. There is spinal stenosis at L3-4, AP diameter between 5 and 6 mm, also on a degenerative basis. Remaining interspaces are widely patent. There is no discrete focal disc herniation. Surrounding soft tissues appear unremarkable as exception of some mild atherosclerotic change in the aorta. IMPRESSION: 1. Lumbar degenerative changes as described. 2. Spinal stenosis on a degenerative basis, moderate to marked at C3-4 and moderate at C4-5 as described.
--- NOTE | 2024-07-08 15:22 | HMCIMG ---
CT THORACIC SPINE W/O CONTRAST REASON: BACK PAIN COMPARISON: None TECHNIQUE: Routine thoracic imaging protocol was performed. FINDINGS: There are normal-appearing thoracic vertebral bodies. Alignment is normal. There are no compression fractures. Interspaces are preserved. There are some anterior osteophytes in the midthoracic spine, mild in degree. Axial images show widely patent spinal canal. There is no disc herniation or focal spinal stenosis. There are no focal osseous lesions. Surrounding soft tissues appear unremarkable. IMPRESSION: 1. Mild thoracic degenerative changes, no acute finding.
--- NOTE | 2024-07-08 15:34 | HMCIMG ---
CHEST 1VW REASON: ELEVATED D DIMER COMPARISON: 09/18/2017 FINDINGS: Single view of the chest was obtained. Lungs are clear. Heart size is normal. There is no pulmonary vascular congestion. Mediastinum and bony thorax appear unremarkable. IMPRESSION: 1. Normal single view chest x-ray.
[2024-07-08] MEDS: INSULIN humuLIN R 100 UNIT/ML 3ML SQ SCH (16:30)
[2024-07-08] MEDS: HEParin 5,000 UNIT VIAL SQ SCH (20:39)
[2024-07-08] MEDS: FAMOTIDINE 20MG VIAL IV SCH (20:40)
[2024-07-08 23:00] VITALS: BP 154/69; PULSE 59; RESP 19; TEMP 98
[2024-07-08 23:05] VITALS: O2SAT 98
--- NOTE | 2024-07-08 23:06 | NUR ---
REPORT GIVEN TO BASIM KAUFFMAN
[2024-07-09] MEDS: ketOROlac 15MG/ML VIAL (15MG/ML) IV PRN (02:02)
[2024-07-09 04:00] VITALS: BP 108/51; PULSE 57; RESP 19; TEMP 97.8
[2024-07-09 05:27] LABS: BASOPHILS # (AUTO) 0.03 K/uL (0.00-0.20); EOSINOPHILS # (AUTO) 0.07 K/uL (0.00-0.70); EOSINOPHILS % (AUTO) 2.3 % (0.0-8.0); HEMATOCRIT 37.6 % (36-48); IMMATURE GRANULOCYTE ABSOLUTE 0.02 K/uL (0-1); LYMPHOCYTES # (AUTO) 1.1 K/uL (1.0-4.8); LYMPHOCYTES % (AUTO) 34.1 % (21.0-51.0); MEAN CORPUSCULAR HEMOGLOBIN 29.5 pg (27.0-33.0); MEAN CORPUSCULAR HGB CONC 32.4 g/dL (32.0-36.0); MONOCYTES # (AUTO) 0.5 K/uL (0.1-1.0); MONOCYTES % (AUTO) 15.1 % (3.0-13.0); NEUTROPHILS # (AUTO) 1.5 K/uL (1.8-7.7); NEUTROPHILS % (AUTO) 46.9 % (40.0-77.0); PLATELET COUNT (AUTO) 191 K/uL (130-400); RED BLOOD CELL COUNT(AUTO) 4.13 MIL/uL (4.00-5.50); RED CELL DISTRIBUTION WIDTH 12.9 % (11.0-15.5); WHITE BLOOD COUNT (AUTO) 3.1 K/uL (4.8-10.8)
[2024-07-09 05:41] LABS: HEMOGLOBIN A1C 6.7 % (4.0-6.0)
[2024-07-09 05:42] LABS: ALANINE AMINOTRANSFERASE 119 U/L (12-78); ALBUMIN 3.1 g/dL (3.5-5.0); AMMONIA < 10 umol/L (11-32); ASPARTATE AMINOTRANSFERASE 82 U/L (10-37); BILIRUBIN,DIRECT 0.1 mg/dL (0.0-0.3); BILIRUBIN,TOTAL 0.4 mg/dL (0.2-1.0); CARBON DIOXIDE 30 mmol/L (21-32); CHLORIDE 106 mmol/L (101-111); CREATINE KINASE, TOTAL 71 U/L (21-232); CREATININE 1.1 mg/dL (0.5-1.0); GLOMERULAR FILTR. RATE CALC 50 mL/min (>90); GLUCOSE,RANDOM 123 mg/dL (70-105); POTASSIUM 4.7 mmol/L (3.5-5.1); SODIUM SERUM 141 mmol/L (136-145); TOTAL PROTEIN, SERUM 6.4 g/dL (6.0-8.3); UREA NITROGEN, BLOOD 23 mg/dL (7-18)
[2024-07-09 08:00] VITALS: BP 141/74; PULSE 54; RESP 19; TEMP 97.9
[2024-07-09 09:00] VITALS: O2SAT 99
[2024-07-09 12:00] VITALS: BP 125/85; PULSE 61; RESP 20; TEMP 98.3
--- NOTE | 2024-07-09 13:52 | HMCIMG ---
CT CHEST W/O CONTRAST REASON: PNA COMPARISON: None. TECHNIQUE: Multiple sequential axial images of the chest were obtained from the thoracic inlet through the upper pole of the kidneys without intravenous contrast administration. FINDINGS: Lungs are clear. There are no focal masses or infiltrates. There is normal-appearing pulmonary interstitial pattern. Heart size is normal with no vascular congestion. There is no hilar or mediastinal lymphadenopathy. There is coronary artery calcification. There is mild aortic calcification. There is no aneurysmal. Chest wall structures appear normal as do visualized upper abdominal structures, the gallbladder is absent. IMPRESSION: 1. No acute process seen in the chest. 2. Coronary artery and thoracic aortic calcification consistent with atherosclerotic change. CT was performed with one or more following dose reduction techniques: automated exposure control, adjustment of the mA and kv according to patient's size, or use of a iterative reconstruction technique.
[2024-07-09] MEDS ORDERED: LIDO1ADH71 TP (15:10)
--- NOTE | 2024-07-09 15:18 | DS ---
Discharge Summary Hospital Course Summary: DATE OF ADMISSION:[07/07/2024] DATE OF DISCHARGE:[07/09/2024] DISPOSITION:[Home] CONDITION:[Medically cleared] CONSULTANTS:[None] FOLLOW UP APPOINTMENTS:[PCP 2 to 3 days] PROCEDURES:[None] IMAGING: report attached to summary MICROBIOLOGY: report attached to summary ACTIVITY:[Independent] HOME MEDICATIONS: see med recc NEW MEDICATIONS:[See med rec] EMERGENCY INSTRUCTIONS: The patient was instructed to present to the nearest Emergency departmentr or call 911 once their symptoms will return or worsen [employer](s): Patient is 84 old female, with a past medical history of colon resection, meniscus, back surgery x2, hypertension, hyperlipidemia, who came to emergency department onset of severe left flank pain radiating to the back past. Patient stated that since last night she developed very excruciate pain that made her cry and. About three it was so unbearable she decided to come to emergency. Pain was for about hour and a half and fell as stabbing pain per left side. 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 Patient was on prednisone for many months and eventually developed perforated colon and underwent a resection of colon in [place]. Her diagnosis was refuted and she was thought to not have polymyositis and she was eventually taken off the steroids. Most recent vital signs temperature 98.4 pulse 55 respiration 18 blood pressure 128/67 patient is on room air satting 96%. WBC 3.4 hemoglobin 13.3 hematocrit platelets 204. UA negative for leukocytosis or nitrates. Sodium 140 potassium 3.9 CO2 27 BUN 22 creatinine 0.9 GFR 64 bilirubin 0.1 AST 33 ALT 38 CK [address] abdomen/pelvis negative. Throughout the hospitalization we performed CT chest was negative we also order CT lumbar which shows spinal stenosis C3-C4 and moderate spinal stenosis C4-C5. Thoracic CT showed mild thoracic degenerative changes patient is cleared to be discharged home follow up with PCP in 2 to 3 days. Patient denies any shortness of breath, chest pain, nausea, vomiting or any other discomfort at this moment. Procedure(s): REVIEW OF SYSTEMS CONSTITUTIONAL: Denies fevers, chills, or night sweats. No unintentional weight loss reported. NEUROLOGICAL: Denies headache, amaurosis fugax, motor weakness, sensory deficit, vertigo/spinning sensation, gait abnormalities, or tremors. ENT: No hearing loss, otalgia, otorrhea, rhinitis, rhinorrhea, hoarseness, or sore throat. CARDIOVASCULAR: Denies any exertional angina, dyspnea on exertion, orthopnea, paroxysmal nocturnal dyspnea, palpitations, life-threatening arrhythmias, claudication. PULMONARY: Denies any shortness of breath, cough, phlegm/sputum, hemoptysis, pleuritic chest pain. SLEEP: Denies morning headaches, daytime somnolence or napping. Denies difficulty falling asleep, staying asleep, waking from sleep. Denies knowledge of snoring. GASTROINTESTINAL: Denies any type of dysphagia to either liquids or solids. Denies nausea, vomiting, pyrosis, early satiety, diarrhea, constipation, or changes in stool consistency or caliber. Denies coffee-ground emesis, hematemesis, hematochezia, or melanotic stools. Complains the left side pain only at night when sleeping on back GENITOURINARY: Denies frequency, urgency, nocturia, hematuria or incontinence (Storage/Irritative symptoms.) Low urinary stream, straining to void, urinary intermittency or hesitancy, splitting of the voiding stream, terminal dribbling. ENDOCRINOLOGIC: Denies polyuria, polydipsia, polyphagia or heat/cold intolerances. HEMATOLOGIC: Denies thrombophilia/previous clots, or coagulopathy/bleeding disorders. ONCOLOGIC: Denies personal history of malignancy. DERMATOLOGIC: Denies rashes or pruritus. PSYCHIATRIC: Denies any suicidal or homicidal ideation. Denies hallucinations. Assessment/Plan: ASSESSMENT: [ Left flank pain/abdominal pain unknown source POA Uncontrolled hypertension POA Uncontrolled diabetes mellitus type 2 with hyperglycemia POA Acute Dehydration POA Hyperlipidemia POA History of colon resection ] PLAN: [ Admit to: Medical-surgical floor Consults: None Antibiotics: None Tests: CT lumbar, CT thoracic without contrast Fluids normal saline at 50 mL/hour NEURO: Minimize central acting medications as possible. Fall Precautions. Well lighted room through the day and minimize interruptions through the night to prevent acute delirium. PULMONARY: Supplemental 02 as needed BiPAP as necessary, for respiratory distress Titrate Fio2 to keep Spo2 > or = 90% DuoNebs and CPT as needed IS hourly while awake for pulmonary hygiene Out of bed to chair as tolerated VAP Bundle Maintain aspiration precautions at all times CARDIOVASCULAR: Follow hemodynamics. Vital signs per facility protocol GI & NUTRITION: Continue nutritional support Aspirations precautions Prokinetic agents and laxatives as needed KIDNEYS & ELECTROLYTES: Strict monitoring of intake and output Daily weights Avoid nephrotoxic agents Monitor electrolytes and replace as needed Goal urine output of 30mL/hr or 0.5mL/kg/hr Medications to be dosed according to renal function. Avoid contrast if possible ENDOCRINE: Maintain blood glucose between 100-180 at all times. Insulin sliding scale for blood glucose management Hypoglycemia and hyperglycemia protocol in place INFECTIOUS DISEASE: Trend temperature, WBC and procalcitonin level Follow cultures, deescalate antibiotics as soon as possible. Panculture if new onset fever HEMATOLOGY & COAGULATION: Monitor H&H. Keep Hgb > 7 Transfuse 1 unit of PRBC for Hgb < 7 Transfuse 1 pack of platelets of platelets < 20, 000 Watch for any signs and symptoms of bleeding SKIN: Pressure ulcer prevention per facility protocol Specialty mattress as needed Treatment plan discussed with patient and family at the bedside Medications to be reconciled once obtained by patient and/or family and available to be reconciled in computer p.r.n. medication for pain nausea and vomiting Questions were answered We will continue to monitor the patient closely Lead Javascript Developer for disposition Rehab: PT/OT GI: PPI DVT: SCD's Code Status: Full Resuscitation Disposition: TBD Prognosis: Guarded ] Home Medications: Reported Medications Losartan Potassium (Losartan Potassium) 50 Mg Tablet, 50 MG PO DAILY, TAB 10/27/18 Discontinued Reported Medications Prednisone (Prednisone) 20 Mg Tablet, 20 MG PO TID, TAB 12/03/18 Hydrocodone/Acetaminophen ([place] 5-325 Tablet) 1 Each Tablet, 1 EACH PO Q6HPRN PRN for PAIN LEVEL 1 TO 5, TAB 10/27/18 Cholecalciferol (Vitamin D3) (Vitamin D) 50,000 Unit Capsule, 18159 UNIT PO 2xwe ek, CAP 10/27/18 Time spent arranging discharge: 31-60 minutes ATTESTATION BY PHYSICIAN I have seen and examined the patient. I reviewed the documentation, medical decision making, and treatment plan as noted by the mid-level provider above. I agree with the findings and plan of care. TERESE RAMSEY MD, [facility]ATARZYNA B [facility] TECH Jul 09, 2024 15:18
--- NOTE | 2024-07-09 16:10 | NUR ---
DC NOTE DC INSTRUCTIONS AND FOLLOW UP APPOINTMENTS GIVEN TO PT AND DAUGHTER AT BEDSIDE, SARY NAVARRO EXPLAINED TO DAUGHTER AND PT ABOUT CT RESULTS AND OKAY TO BE DC. PIV REMOVED, CATHETER INTACT DENIES NAY PAIN OR DISCOMFORT, EAGER TO BE DC. PT IS WHEELED DOWNSTAIRS WITH HEALTH CARE COORDINATOR INTO VIA PRIVATE CAR. NO COMMENTS OR CONCERNS AT THIS TIME.
[2024-07-10] MEDS ORDERED: LIDOCAINE 4% ADH..PATCH TP SCH (09:00)
== END 2024-07-09 16:10 | disposition home or self-care (01) ==
LOC: EDH 03:19 → INTOOBSV 09:21 → EDHIP 09:21 → 3AH 22:00
PROVIDERS: ADMIT Internal Medicine; ATTEND Internal Medicine
DX: R10.9 Unspecified abdominal pain (principal); I10 Essential (primary) hypertension; E11.65 Type 2 diabetes mellitus with hyperglycemia; E86.0 Dehydration; E78.5 Hyperlipidemia, unspecified; I16.0 Hypertensive urgency; M62.81 Muscle weakness (generalized); M54.50 Low back pain, unspecified; K63.1 Perforation of intestine (nontraumatic); Z90.49 Acquired absence of other specified parts of digestive tract; Z79.899 Other long term (current) drug therapy
CPT/HCPCS: 96372; 96376 ×3; 96361; 96375 ×2; 99284; 82550 ×2; 80076 ×2; 80048 ×2; 83690; 85025 ×2; 85378; 82948 ×3; 81003; 36415 ×2; 71045; 72131; 72128; 74176; 96374; 93005; 83036; 83735; 83880; 82140; 83605; 71250; 84145; J1815; G0378 ×28; J3490; J2270 ×3; J7030; J1644; J1885 ×2; 99285